=== PATIENT | male | born 1945 | race African-American/Black ===

== ENCOUNTER 2025-04-28 12:25 | Outpatient (CLI) | payer OTHER | END 2025-04-28 12:26 | disposition home or self-care (01) | LOC: CT 12:25 | PROVIDERS: ATTEND Nurse Practitioner Family | DX: R26.89 Other abnormalities of gait and mobility (principal); R29.6 Repeated falls; Z86.73 Personal history of transient ischemic attack (TIA), and cerebral infarction without residual deficits; R90.82 White matter disease, unspecified; I67.82 Cerebral ischemia; G93.89 Other specified disorders of brain; G31.9 Degenerative disease of nervous system, unspecified; I63.9 Cerebral infarction, unspecified | CPT/HCPCS: 70450 ==